=== PATIENT | male | born 1950 | race Caucasian/White ===

== ENCOUNTER 2018-08-08 07:57 | Emergency (ER) | payer MEDICARE, MEDICAID ==
[~2018-08-08] VITALS: Ht 172.7 cm; Wt 76.4 kg
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
[2018-08-08] MEDS ORDERED: WARF1TAB PO (08:28)
[2018-08-08] MEDS ORDERED: OXYC-305 PO (08:28)
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
[2018-08-08 09:00] LABS: BASOPHILS # (AUTO) 0.06 x10^3/uL (0-0.1); BASOPHILS % (AUTO) 1 % (0-1); EOSINOPHILS # (AUTO) 0.14 x10^3/uL (0-0.4); EOSINOPHILS % (AUTO) 3 % (1-7); LYMPHOCYTES % (AUTO) 33 % (22-44); MD NO; MEAN CORPUSCULAR HEMOGLOBIN 33.5 pg (27.5-34.5); MEAN CORPUSCULAR HGB CONC 32.8 g/dL (33.2-36.2); MEAN CORPUSCULAR VOLUME 102.2 fL (81-97); MEAN PLATELET VOLUME 7.4 fL (7.4-10.4); MONOCYTES # (AUTO) 0.25 x10^3/uL (0.2-0.8); MONOCYTES % (AUTO) 5 % (2-9); NEUTROPHILS # (AUTO) 3.08 x10^3/uL (1.8-6.8); NEUTROPHILS % (AUTO) 59 % (42-75); PLATELET COUNT 214 x10^3/uL (130-400); RED BLOOD COUNT 4.42 x10^6/uL (4.38-5.82); RED CELL DISTRIBUTION WIDTH 15.6 % (9.4-14.8)
[2018-08-08 09:10] LABS: INTERNATIONAL NORMALIZED RATIO 1.59 (0.93-1.1); PROTHROMBIN TIME 16.4 Seconds (9.6-11.5)
[2018-08-08 09:16] LABS: ALANINE AMINOTRANSFERASE 26 U/L (12-78); ALBUMIN 4.2 g/dL (3.4-5.0); ANION GAP 11 mmol/L (5-15); CALCIUM 8.6 mg/dL (8.5-10.1); CHLORIDE 109 mmol/L (98-107); CREATININE 0.78 mg/dL (0.7-1.3)
[2018-08-08 09:18] LABS: ALKALINE PHOSPHATASE 93 U/L (45-117); BILIRUBIN,TOTAL 0.6 mg/dL (0.2-1.0); TOTAL PROTEIN 7.9 g/dL (6.4-8.2)
[2018-08-08] MEDS ORDERED: OXYcodone/APAP 5/325MG TABLET ONE (09:40)
--- NOTE | 2018-08-08 09:43 | NUR ---
Provided pt medication for 10/10 bilateral temporal and facial pain. Pt appreciative. Pt transported on [place]urney to [place]. No needs expressed.
[2018-08-08] MEDS ORDERED: OXYcodone/APAP 5/325MG TABLET PO ONE (10:00)
--- NOTE | 2018-08-08 10:38 | NUR ---
Pt requesting additonal pain medication. ED PA aware.
[2018-08-08 10:49] VITALS: BP 146/90
--- NOTE | 2018-08-08 10:55 | NUR ---
Vince guzman in [facility] - 08/08/18 at 1229 by JOSY 137.8 kg daily weight per hospital bed.
--- NOTE | 2018-08-08 12:29 | NUR ---
Prior note made on wrong chart.
--- NOTE | 2018-08-08 12:30 | NUR ---
Pt discharged with out recieving discharge paperwork and education. Pt left with all personal belongings.
== END 2018-08-08 12:32 | disposition home or self-care (01) ==
LOC: ED 09:04
DX: S02.40CA Maxillary fracture, right side, initial encounter for closed fracture (principal); S02.40EA Zygomatic fracture, right side, initial encounter for closed fracture; S02.81XA Fracture of other specified skull and facial bones, right side, initial encounter for closed fracture; F10.129 Alcohol abuse with intoxication, unspecified; R04.0 Epistaxis; V57.5XXA Driver of pick-up truck or van injured in collision with fixed or stationary object in traffic accident, initial encounter; Y93.89 Activity, other specified; Y92.89 Other specified places as the place of occurrence of the external cause; Y99.8 Other external cause status; Y90.9 Presence of alcohol in blood, level not specified
CPT/HCPCS: 36415; 70450; 70486; 72125; 80053; 80307; 85025; 85610; 93005; 99284